=== PATIENT | male | born 2005 | race Two or more races ===

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

== ENCOUNTER 2025-10-22 23:10 | Emergency (ER) | payer OTHER, MEDICAID ==
[~2025-10-22 23:10] MED LIST: DICY10CA PO; OMEP-434 PO
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
[2025-10-23 01:14] VITALS: BP 109/60; PULSE 92; RESP 16; TEMP 97.8; O2SAT 96
== END 2025-10-23 01:41 | disposition home or self-care (01) ==
LOC: EDBD 23:10 → ER 23:10 → EDUNIT# 23:10 → ER 10-23 01:41
DX: S50.11XA Contusion of right forearm, initial encounter (principal); S20.211A Contusion of right front wall of thorax, initial encounter; J45.909 Unspecified asthma, uncomplicated; Z79.899 Other long term (current) drug therapy; Z91.040 Latex allergy status; Y08.89XA Assault by other specified means, initial encounter; Y93.89 Activity, other specified; Y92.89 Other specified places as the place of occurrence of the external cause; Y99.8 Other external cause status
CPT/HCPCS: 71101; 73090